=== PATIENT | female | born 1995 | race Caucasian/White ===

== ENCOUNTER 2016-12-07 19:51 | Emergency (ER) | payer OTHER, MEDICAID ==
[~2016-12-07] VITALS: Ht 162.6 cm; Wt 65.3 kg
[~2016-12-07 19:51] MED LIST: MOTRIN600 MG PO
[2016-12-07 20:01] VITALS: BP 109/71
--- NOTE | 2016-12-07 21:21 | NUR ---
PATIENT LEFT WITHOUT BEING SEEN BY DR. Lutz. NO FURTHER CARE PROVIDED FOR PATIENT.
== END 2016-12-07 21:21 | disposition left against medical advice (07) ==
LOC: MED 19:51
DX: M25.562 Pain in left knee (principal); M25.561 Pain in right knee; Z53.21 Procedure and treatment not carried out due to patient leaving prior to being seen by health care provider